=== PATIENT | male | born 1940 | race Caucasian/White ===

== ENCOUNTER 2016-12-18 08:28 | Outpatient (CLI) | payer MEDICARE ==
[2016-12-18 14:22] LABS: ALBUMIN/GLOBULIN RATIO 1.5 (1.0-2.2); BASOPHILS % (AUTO) 0.6 %; BILIRUBIN,TOTAL 0.9 mg/dL (0.2-1.0); BUN - BLOOD UREA NITROGEN 17 mg/dL (6-20); CALCIUM 9.4 mg/dL (8.5-10.3); CARBON DIOXIDE - CO2 27 mmol/L (21-32); CHLORIDE 104 mmol/L (101-111); CHOL/HDL RATIO 3.5 (<5.0); CHOLESTEROL 222 mg/dL; CREATININE 0.8 mg/dL (0.6-1.2); EOSINOPHILS # (AUTO) 0.3 10^3/uL (0.0-0.7); EOSINOPHILS % (AUTO) 4.5 %; GFR - MDRD 93 (>89); GLUCOSE 105 mg/dL (70-100); HCT - HEMATOCRIT 43.8 % (42.0-52.0); HDL CHOLESTEROL 63 mg/dL; HGB - HEMOGLOBIN 15.4 g/dL (14.0-18.0); LDL/HDL RATIO 2.3 (<3.6); LYMPHOCYTES # (AUTO) 1.4 10^3/uL (1.5-3.5); LYMPHOCYTES % (AUTO) 24.2 %; MEAN CORPUSCULAR HEMOGLOBIN 33.4 pg (27.0-31.0); MEAN CORPUSCULAR HGB CONC 35.2 g/dL (32.0-36.0); MEAN PLATELET VOLUME 8.7 fL (7.4-11.4); MONOCYTES # (AUTO) 0.5 10^3/uL (0.0-1.0); MONOCYTES % (AUTO) 8.6 %; NEUTROPHILS # (AUTO) 3.6 10^3/uL (1.5-6.6); NEUTROPHILS % (AUTO) 62.1 %; NUCLEATED RED BLOOD CELLS AUTO 0.1 /100WBC; POTASSIUM 4.2 mmol/L (3.5-5.0); RED BLOOD COUNT 4.61 10^6/uL (4.70-6.10); SODIUM 136 mmol/L (135-145); TOTAL PROTEIN 7.4 g/dL (6.7-8.2); TRIGLYCERIDES 76 mg/dL; UNCORRECTED WHITE BLOOD COUNT 5.8 x10^3/uL; VLDL CHOLESTEROL 15 mg/dL; WHITE BLOOD COUNT 5.8 x10^3/uL (4.8-10.8)
== END 2016-12-18 08:29 | disposition home or self-care (01) ==
LOC: LAB.F 08:28
PROVIDERS: ATTEND Nurse Practitioner Primary Care
DX: D69.0 Allergic purpura (principal); R73.01 Impaired fasting glucose; E78.5 Hyperlipidemia, unspecified; Z79.899 Other long term (current) drug therapy
CPT/HCPCS: 36415; 80053; 80061; 85025

== ENCOUNTER 2017-12-25 07:15 | Outpatient (CLI) | payer MEDICARE ==
[2017-12-25 10:25] LABS: BASOPHILS % (AUTO) 0.7 %; EOSINOPHILS # (AUTO) 0.2 10^3/uL (0.0-0.7); EOSINOPHILS % (AUTO) 4.4 %; HGB - HEMOGLOBIN 15.8 g/dL (14.0-18.0); LYMPHOCYTES # (AUTO) 1.5 10^3/uL (1.5-3.5); LYMPHOCYTES % (AUTO) 26.5 %; MEAN CORPUSCULAR HEMOGLOBIN 34.1 pg (27.0-31.0); MEAN CORPUSCULAR HGB CONC 35.1 g/dL (32.0-36.0); MEAN PLATELET VOLUME 8.7 fL (7.4-11.4); MONOCYTES # (AUTO) 0.5 10^3/uL (0.0-1.0); MONOCYTES % (AUTO) 9.4 %; NEUTROPHILS # (AUTO) 3.3 10^3/uL (1.5-6.6); PLT - PLATELET COUNT 163 10^3/uL (130-450); RED BLOOD COUNT 4.63 10^6/uL (4.70-6.10); RED CELL DISTRIBUTION WIDTH 12.9 % (12.0-15.0); WHITE BLOOD COUNT 5.6 x10^3/uL (4.8-10.8)
[2017-12-25 10:55] LABS: ALBUMIN 4.1 g/dL (3.2-5.5); ALBUMIN/GLOBULIN RATIO 1.3 (1.0-2.2); ALKALINE PHOSPHATASE 77 IU/L (42-121); ALT ALANINE AMINOTRANSFERASE 37 IU/L (10-60); AST ASPARTATE AMINOTRANSFERASE 29 IU/L (10-42); BILIRUBIN,TOTAL 0.8 mg/dL (0.2-1.0); BUN - BLOOD UREA NITROGEN 22 mg/dL (6-20); CALCIUM 9.3 mg/dL (8.5-10.3); CARBON DIOXIDE - CO2 27 mmol/L (21-32); CHLORIDE 106 mmol/L (101-111); CHOL/HDL RATIO 2.8 (<5.0); CHOLESTEROL 162 mg/dL; CREATININE 0.8 mg/dL (0.6-1.2); GFR - MDRD 93 (>89); GLUCOSE 112 mg/dL (70-100); HDL CHOLESTEROL 57 mg/dL; LDL CHOLESTEROL,CALCULATED 91 mg/dL; LDL/HDL RATIO 1.6 (<3.6); SODIUM 138 mmol/L (135-145); TOTAL PROTEIN 7.2 g/dL (6.7-8.2); VLDL CHOLESTEROL 14 mg/dL
[2017-12-25 10:56] LABS: HB2 TOTAL 16.9 g/dL; HEMOGLOBIN A1C 0.58 g/dL; HEMOGLOBIN A1C % 5.3 % (4.6-6.2)
[2017-12-25 11:09] LABS: PLATELET ESTIMATE, MANUAL NORMAL (130-450,000) (NORMAL); PLATELET MORPHOLOGY 1+ LARGE PLATELETS (NORMAL)
[2017-12-25 11:10] LABS: RBC MORPHOLOGY (MULTIPLE) 1+ BASO STIPPLING (NORMAL)
== END 2017-12-25 07:16 | disposition home or self-care (01) ==
LOC: LAB.F 07:15
PROVIDERS: ATTEND Internal Medicine
DX: R73.01 Impaired fasting glucose (principal); Z79.899 Other long term (current) drug therapy; N40.0 Benign prostatic hyperplasia without lower urinary tract symptoms; E87.5 Hyperkalemia; Z13.29 Encounter for screening for other suspected endocrine disorder
CPT/HCPCS: 36415; 80053; 80061; 83036; 83721; 84443; 85025; G0103; 84153

== ENCOUNTER 2018-02-19 12:45 | Outpatient (CLI) | payer MEDICARE ==
--- NOTE | 2018-02-19 15:25 | XRAY Report ---
Reason: KNEE JOINT PAIN,RIGHT Procedure Date: 02/19/2018 Accession Number: [id number] / [id number] Procedure: XR - Knee 4 View RT CPT Code: FULL RESULT: EXAM: RIGHT KNEE RADIOGRAPHY EXAM DATE: 02/19/2018 12:55 PM. CLINICAL HISTORY: Medial right knee pain. Knee joint pain on the right. Increasing pain recently. COMPARISON: None. TECHNIQUE: 4 views. FINDINGS: Bones: No acute fracture or bony lesion. Mild degenerative spurring. Joints: Mild narrowing of the medial, lateral and patellofemoral compartment. Small right knee effusion. No dislocation. Soft Tissues: Normal. No soft tissue swelling. IMPRESSION: 1. 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 2. Small right knee effusion. RADIA
== END 2018-02-19 12:46 | disposition home or self-care (01) ==
LOC: DI 12:45
PROVIDERS: ATTEND Nurse Practitioner Primary Care
DX: M17.11 Unilateral primary osteoarthritis, right knee (principal); M25.461 Effusion, right knee

== ENCOUNTER 2018-09-01 13:28 | Emergency (ER) | payer MEDICARE ==
[2018-09-01 13:35] VITALS: BP 145/95
--- NOTE | 2018-09-01 13:37 | ED Physician Documentation ---
PD HPI DYSPNEA - Stated complaint Stated Complaint: SOA/FEVER - History obtained from History obtained from: Patient - History of Present Illness Timing - onset: Other (This is a very healthy 78-year-old gentleman with no history of heart or lung issues and no history of smoking who presents with 2 days of dyspnea. Started after a long car trip back from [place]. He noted pedal edema bilaterally which is since resolved. Is been progressively short of breath over the last 2 days with fevers up to 101 but there is no cough. He denies chest pain or current pedal edema.) Review of Systems Ten Systems: 10 systems reviewed and negative Constitutional: reports: Fever. denies: Chills Nose: denies: Rhinorrhea / runny nose, Congestion Throat: denies: Sore throat Cardiac: reports: Pedal edema (gone, bilateral). denies: Chest pain / pressure, Palpitations, Calf pain Respiratory: reports: Dyspnea, Wheezing. denies: Cough, Hemoptysis GI: denies: Abdominal Pain PD PAST MEDICAL HISTORY - Past Medical History Past Medical History: Yes : Benign prostate hypertrophy - Past Surgical History Past Surgical History: Yes General: Appendectomy, Other - Present Medications Home Medications: Ambulatory Orders Medication Instructions Recorded Confirmed Finasteride 1 mg PO 10/24/14 10/24/14 Atorvastatin [Lipitor] 0 mg 09/01/18 09/01/18 Levofloxacin [Levaquin] 750 mg PO DAILY #6 tablet 09/01/18 - Allergies Allergies/Adverse Reactions: Allergies Allergy/AdvReac Type Severity Reaction Status Date / Time No Known Drug Allergies Allergy Verified 09/01/18 13:35 - Social History Does the pt smoke?: No Smoking Status: Never smoker Does the pt drink ETOH?: Yes Does the pt have substance abuse?: No - Family History Family history: reports: Non contributory - Immunizations Immunizations are current?: Yes PD ED PE NORMAL - Vitals Vital signs reviewed: Yes (borerline pulse ox and tachycardia) - General General: Alert and oriented X 3, No acute distress - Neck Neck: Supple, no meningeal sign, No bony TTP - Cardiac Cardiac: RRR, No murmur - Respiratory Respiratory: No respiratory distress, Other (diminished both bases) - Abdomen Abdomen: Soft, Non tender - Back Back: No CVA TTP, No spinal TTP - Derm Derm: Normal color, Warm and dry - Extremities Extremities: No edema, No calf tenderness / cord - Neuro Neuro: Alert and oriented X 3, Normal speech Results - Vitals Vitals: Vital Signs - 24 hr 09/01/18 13:32 Temperature 37.2 C Heart Rate 101 H Respiratory 20 Rate Blood Pressure 145/95 H O2 Saturation 90 L Oxygen O2 Source Room air Oxygen Flow Rate 2 - EKG (time done) 1424 Rate: Rate (enter#) (84) Rhythm: NSR [place]: LAD Intervals: Other (LAFB) Ischemia: Normal ST segments Computer interpretation: Agree with computer - Labs Labs: Laboratory Tests 09/01/18 09/01/18 09/01/18 13:46 13:46 13:46 WBC 10.0 RBC 4.04 L Hgb 13.6 L Hct 39.2 L MCV 97.0 H MCH 33.6 H MCHC 34.7 RDW 13.0 Plt Count 129 L MPV 7.9 Neut # (Auto) 8.5 H Lymph # (Auto) 0.7 L Emmons # (Auto) 0.7 Eos # (Auto) 0.1 Baso # (Auto) 0.0 Absolute Nucleated RBC 0.00 Nucleated RBC % 0.0 D-Dimer Sodium 137 Potassium 3.8 Chloride 103 Carbon Dioxide 26 Anion Gap 8.0 BUN 14 Creatinine 0.8 Estimated GFR (MDRD) 93 Glucose 114 H Lactic Acid Calcium 9.2 Total Bilirubin 1.7 H AST 29 ALT 43 Alkaline Phosphatase 76 Troponin I < 0.04 B-Natriuretic Peptide Total Protein 7.2 Albumin 4.0 Globulin 3.2 Albumin/Globulin Ratio 1.3 Lipase 09/01/18 09/01/18 09/01/18 13:46 13:47 13:47 WBC RBC Hgb Hct MCV MCH MCHC RDW Plt Count MPV Neut # (Auto) Lymph # (Auto) Emmons # (Auto) Eos # (Auto) Baso # (Auto) Absolute Nucleated RBC Nucleated RBC % D-Dimer 349.2 H Sodium Potassium Chloride Carbon Dioxide Anion Gap BUN Creatinine Estimated GFR (MDRD) Glucose Lactic Acid 0.8 Calcium Total Bilirubin AST ALT Alkaline Phosphatase Troponin I B-Natriuretic Peptide 334 H Total Protein Albumin Globulin Albumin/Globulin Ratio Lipase - Rads (name of study) 2v chest Radiology: EMP read contemporaneously (Airway thickening with bilateral lower lobe atelectasis or scar, no consolidative pneumonia.) CTA Chest Radiology: EMP read contemporaneously (No PE, asymmetric right lung airspace disease concerning for bronchopneumonia.) PD MEDICAL DECISION MAKING - ED course ED course: 78-year-old gentleman presents with dyspnea and fever concerning for pneumonia, however no cough. He has borderline pulse oximetry although appeared comfortable. X-ray was relatively unhelpful and he had a borderline d-dimer, CT proved to the pneumonia. He is treated with Levaquin. I asked the RN to ambulate him in the hallway prior to discharge and a pulse ox to make sure that he stays above 88% or so. Departure - Departure Disposition: 01 Home, Self Care Clinical Impression: Pneumonia Qualifiers: Pneumonia type: due to unspecified organism Laterality: right Lung location: lower lobe of lung Qualified Code(s): J18.1 - Lobar pneumonia, unspecified organism Dyspnea Qualifiers: Dyspnea type: dyspnea on exertion Qualified Code(s): R06.09 - Other forms of dyspnea Condition: Good Record reviewed to determine appropriate education?: Yes Instructions: Pneumonia Dc Prescriptions: Levofloxacin [Levaquin] 750 mg PO DAILY #6 tablet Comments: Call your doctor to arrange a follow-up appointment, make the next available appointment. In the interim, return anytime if worse or if new symptoms develop.
[2018-09-01 13:49] LABS: BASOPHILS % (AUTO) 0.4 %; EOSINOPHILS # (AUTO) 0.1 10^3/uL (0.0-0.7); EOSINOPHILS % (AUTO) 0.9 %; HGB - HEMOGLOBIN 13.6 g/dL (14.0-18.0); LYMPHOCYTES # (AUTO) 0.7 10^3/uL (1.5-3.5); LYMPHOCYTES % (AUTO) 7.2 %; MEAN CORPUSCULAR HEMOGLOBIN 33.6 pg (27.0-31.0); MEAN CORPUSCULAR HGB CONC 34.7 g/dL (32.0-36.0); MEAN PLATELET VOLUME 7.9 fL (7.4-11.4); MONOCYTES # (AUTO) 0.7 10^3/uL (0.0-1.0); MONOCYTES % (AUTO) 7.2 %; NEUTROPHILS # (AUTO) 8.5 10^3/uL (1.5-6.6); NEUTROPHILS % (AUTO) 84.3 %; PLT - PLATELET COUNT 129 10^3/uL (130-450); RED BLOOD COUNT 4.04 10^6/uL (4.70-6.10)
[2018-09-01 14:03] LABS: ALBUMIN/GLOBULIN RATIO 1.3 (1.0-2.2); BILIRUBIN,TOTAL 1.7 mg/dL (0.2-1.0); CALCIUM 9.2 mg/dL (8.5-10.3); CREATININE 0.8 mg/dL (0.6-1.2); TOTAL PROTEIN 7.2 g/dL (6.7-8.2)
--- NOTE | 2018-09-01 14:15 | XRAY Report ---
Reason: fever, dyspnea Procedure Date: 09/01/2018 Accession Number: [id number] / [id number] Procedure: XR - Chest 2 View X-Ray CPT Code: 32390 FULL RESULT: EXAM: CHEST RADIOGRAPHY EXAM DATE: 09/01/2018 01:54 PM. CLINICAL HISTORY: Fever, dyspnea. COMPARISON: None. TECHNIQUE: 2 views. FINDINGS: Lungs/Pleura: There are bilateral basilar linear bandlike opacities. There is lower lobe airway thickening. No consolidative pneumonia. Negative for pleural effusion and pneumothorax. Mediastinum: Heart size appears normal. Trachea is midline. Mild to moderate aortic arch atherosclerotic calcification. Other: None. IMPRESSION: Airway thickening and inflammation with bilateral lower lobe atelectasis or scar. No consolidative pneumonia. RADIA
[2018-09-01] MEDS ORDERED: IOVERSOL 320 100 ML VIAL IVP ONE ×2 (14:43→15:04)
--- NOTE | 2018-09-01 15:27 | CT Report ---
Reason: PE protocol, dyspnea Procedure Date: 09/01/2018 Accession Number: [id number] / [id number] Procedure: CT - ANGIO CHEST W/WO CPT Code: FULL RESULT: EXAM: CT ANGIOGRAM CHEST EXAM DATE: 09/01/2018 03:03 PM. CLINICAL HISTORY: PE protocol, dyspnea. COMPARISON: None. TECHNIQUE: Routine helical imaging was performed through the chest in the pulmonary arterial phase. IV Contrast: OPTI 320 80 ML. Reconstructions: Coronal 3-D MIP reconstructions.Sagittal and coronal. In accordance with CT protocol optimization, one or more of the following dose reduction techniques were utilized for this exam: automated exposure control, adjustment of mA and/or KV based on patient size, or use of iterative reconstructive technique. FINDINGS: Pulmonary Arteries: Diagnostic quality: Adequate through the segmental arteries. Negative for an acute pulmonary embolism. Main pulmonary artery size is normal. Lungs/Pleura: There is asymmetric peribronchovascular consolidation and nodularity within the right upper lobe, right middle lobe and right lower lobe. There is bilateral lower lobe atelectasis with patchy air trapping. Left upper lobe is clear. No cavitary lung lesion. There is a trace right pleural effusion. Mediastinum: Heart size is normal. There are dense coronary artery calcifications. Negative for pericardial effusion. Thoracic Aorta: No thoracic aortic aneurysm. Aorta not yet opacified with contrast. Upper Abdomen: No displaced intimal aortic calcifications. Other: None. IMPRESSION: 1. Negative for acute pulmonary embolism. 2. Asymmetric right lung airspace disease suspicious for a patchy bronchopneumonia or sequela of aspiration. RADIA
[2018-09-01] MEDS ORDERED: levoFLOXacin 250 MG TABLET PO STA (15:30)
--- NOTE | 2018-09-02 13:23 | ED Physician Documentation ---
ED Addendum - Addendum Addendum: 09/02/18 13:22 Pt called stating pain to both achilles areas. Will stop levaquin and change to doxycycline 100mg BID x 10d. Will come in to be seen if he worsens. 09/02/18 13:23
== END 2018-09-01 15:49 | disposition home or self-care (01) ==
LOC: ED 13:28
DX: J18.1 Lobar pneumonia, unspecified organism (principal); M25.572 Pain in left ankle and joints of left foot; M25.571 Pain in right ankle and joints of right foot; I44.4 Left anterior fascicular block
CPT/HCPCS: 36415; 71046; 71275; 80053; 83605; 83690; 83880; 84484; 85025; 85379; 87040; 93005; 99283; A9270; Q9967

== ENCOUNTER 2018-11-21 12:49 | Outpatient (CLI) | payer MEDICARE ==
[~2018-11-21 12:49] MED LIST: ALBUTEROL NEB 2.5 MG/3 ML INH SCH
[2018-12-03] MEDS ORDERED: ALBUTEROL NEB 2.5 MG/3 ML INH ONE (08:33)
== END 2018-11-21 12:50 | disposition home or self-care (01) ==
LOC: RT 12:49
PROVIDERS: ATTEND Student in an Organized Health Care Education/Training Program
DX: R06.02 Shortness of breath (principal)
CPT/HCPCS: 94060; 94729

== ENCOUNTER 2018-12-24 09:08 | Outpatient (CLI) | payer MEDICARE | END 2018-12-24 09:09 | disposition home or self-care (01) | LOC: RT 09:08 | PROVIDERS: ATTEND Internal Medicine Cardiovascular Disease | DX: R00.2 Palpitations (principal) | CPT/HCPCS: 93005 ==

== ENCOUNTER 2019-09-19 09:18 | Outpatient (CLI) | payer MEDICARE ==
[2019-09-19 14:43] LABS: BASOPHILS # (AUTO) 0.1 10^3/uL (0.0-0.1); BASOPHILS % (AUTO) 0.7 %; EOSINOPHILS # (AUTO) 0.3 10^3/uL (0.0-0.7); EOSINOPHILS % (AUTO) 4.9 %; HGB - HEMOGLOBIN 14.7 g/dL (14.0-18.0); LYMPHOCYTES # (AUTO) 1.8 10^3/uL (1.5-3.5); LYMPHOCYTES % (AUTO) 25.8 %; MEAN CORPUSCULAR HEMOGLOBIN 33.2 pg (27.0-31.0); MEAN CORPUSCULAR HGB CONC 33.3 g/dL (32.0-36.0); MEAN CORPUSCULAR VOLUME 99.8 fL (80.0-94.0); MEAN PLATELET VOLUME 10.4 fL (7.4-11.4); MONOCYTES # (AUTO) 0.7 10^3/uL (0.0-1.0); MONOCYTES % (AUTO) 9.4 %; NEUTROPHILS # (AUTO) 4.1 10^3/uL (1.5-6.6); NEUTROPHILS % (AUTO) 58.9 %; PLT - PLATELET COUNT 151 10^3/uL (130-450); RED BLOOD COUNT 4.43 10^6/uL (4.70-6.10); RED CELL DISTRIBUTION WIDTH 12.7 % (12.0-15.0); WHITE BLOOD COUNT 6.9 x10^3/uL (4.8-10.8)
[2019-09-19 15:20] LABS: ALBUMIN 3.8 g/dL (3.2-5.5); ALKALINE PHOSPHATASE 101 IU/L (42-121); ALT ALANINE AMINOTRANSFERASE 43 IU/L (10-60); AST ASPARTATE AMINOTRANSFERASE 38 IU/L (10-42); BILIRUBIN,TOTAL 1.1 mg/dL (0.2-1.0); BUN - BLOOD UREA NITROGEN 17 mg/dL (6-20); CALCIUM 9.2 mg/dL (8.5-10.3); CARBON DIOXIDE - CO2 28 mmol/L (21-32); CHLORIDE 103 mmol/L (101-111); CHOL/HDL RATIO 3.4 (<5.0); CHOLESTEROL 159 mg/dL; CREATININE 0.8 mg/dL (0.6-1.2); GLUCOSE 111 mg/dL (70-100); HDL CHOLESTEROL 47 mg/dL; LDL CHOLESTEROL,CALCULATED 98 mg/dL; LDL/HDL RATIO 2.1 (<3.6); SODIUM 137 mmol/L (135-145); TOTAL PROTEIN 7.5 g/dL (6.7-8.2); VLDL CHOLESTEROL 14 mg/dL
[2019-09-19 15:36] LABS: PSA FREE 0.11 ng/mL (0.16-2.81)
[2019-09-19 15:37] LABS: PSA TOTAL 0.5 ng/mL (0.000-2.000)
== END 2019-09-19 23:59 | disposition home or self-care (01) ==
LOC: LAB.S 09:18
PROVIDERS: ATTEND Nurse Practitioner
DX: E78.5 Hyperlipidemia, unspecified (principal); K21.9 Gastro-esophageal reflux disease without esophagitis; D75.89 Other specified diseases of blood and blood-forming organs; L65.9 Nonscarring hair loss, unspecified; N40.0 Benign prostatic hyperplasia without lower urinary tract symptoms; R73.01 Impaired fasting glucose
CPT/HCPCS: 36415; 80053; 80061; 83721; 84153; 84154; 84443; 85025

== ENCOUNTER 2022-12-25 08:10 | Outpatient (CLI) | payer MEDICARE ==
--- NOTE | 2022-12-25 12:44 | Ultrasound Report ---
PROCEDURE: Duplex Lwr Ext Arterial Bilat INDICATIONS: BILATERAL LOWER EXT PAIN TECHNIQUE: Color and pulse Doppler interrogation was performed of both lower extremity arterial systems, with im age documentation. COMPARISON: None FINDINGS: Right lower extremity: Common femoral artery: 56 cm/sec, with triphasic flow. Deep femoral artery: 33 cm/sec, with triphasic flow. Proximal superficial femoral artery: 81 cm/sec, with triphasic flow. Mid superficial femoral artery: 68 cm/sec, with triphasic flow. Distal superficial femoral artery: 49 cm/sec, with triphasic flow. Popliteal artery: 31 cm/sec, with triphasic flow. Posterior tibial artery: 21 cm/sec, with triphasic flow. Anterior tibial artery/dorsalis pedis: 57/26 cm/sec, with triphasic/biphasic flow. Watts-scale imaging description: Widely patent vessels Left lower extremity: Common femoral artery: 49 cm/sec, with triphasic flow. Deep femoral artery: 39 cm/sec, with triphasic flow. Proximal superficial femoral artery: 70 cm/sec, with triphasic flow. Mid superficial femoral artery: 63 cm/sec, with triphasic flow. Distal superficial femoral artery: 55 cm/sec, with triphasic flow. Popliteal artery: 38 cm/sec, with triphasic flow. Posterior tibial artery: 58 cm/sec, with triphasic flow. Anterior tibial artery/dorsalis pedis: 40/40 cm/sec, with biphasic/triphasic flow. Watts-scale imaging description: Widely patent vessels. IMPRESSION: No significant stenotic disease involving the bilateral lower extremity arterial trees. Reviewed by: Chava Goodwin MD on 12/25/2022 12:42 PM PDT Approved by: Chava Goodwin MD on 12/25/2022 12:42 PM PDT Station ID: [id number]
== END 2022-12-25 08:11 | disposition home or self-care (01) ==
LOC: DI 08:10
PROVIDERS: ATTEND Internal Medicine
DX: M79.604 Pain in right leg (principal); M79.605 Pain in left leg; T14.8XXA Other injury of unspecified body region, initial encounter
CPT/HCPCS: 93925

== ENCOUNTER 2023-12-10 08:00 | Outpatient (CLI) | payer MEDICARE | END 2023-12-10 23:59 | disposition home or self-care (01) | LOC: LAB.S 08:00 | PROVIDERS: ATTEND Emergency Medicine | DX: R09.89 Other specified symptoms and signs involving the circulatory and respiratory systems (principal) ==